=== PATIENT | male | born 1945 | race Caucasian/White ===

== ENCOUNTER 2018-11-29 14:20 | Emergency (ER) | payer OTHER ==
[~2018-11-29] VITALS: Ht 165.1 cm; Wt 67.1 kg
[2018-11-29] MEDS ORDERED: LIPITOR40 MG (14:31)
[2018-11-29] MEDS ORDERED: JANUMET 50-1,01 EACH (14:31)
== END 2018-11-29 20:57 | disposition home or self-care (01) ==
LOC: ER 14:20
DX: N20.2 Calculus of kidney with calculus of ureter (principal)